=== PATIENT | male | born 1950 | race Caucasian/White ===

== ENCOUNTER 2019-11-03 08:04 | Emergency (ER) | payer MEDICARE, SELFPAY ==
--- NOTE | 2019-11-03 08:38 | ED.NAVMDI ---
HPI - Nausea/Vomiting/Diarrhea General Chief complaint: Nausea/Vomiting/Diarrhea Stated complaint: diarrhea Time Seen by Provider: 11/03/19 09:00 Source: patient and RN notes reviewed Mode of arrival: ambulatory Limitations: no limitations History of Present Illness HPI Narrative: 69-year-old male presents with concern for 5-day history of diarrhea. Reports the day before he had diarrhea he ate a steak that was very undercooked. Reports undigested steak in his first diarrhea stool. Reports greater than 6 stools a day for the first 3 days, then started taking Imodium which lessened the amount of stools. Reports he had another watery stool this morning so he took another dose of Imodium. Reports he sometimes has trouble making it to the bathroom. MD elicited complaint: diarrhea Related Data Home Medications Medication Instructions Recorded Confirmed aspirin [Aspir-Low] 81 mg PO DAILY 11/03/19 11/03/19 omeprazole magnesium [Prilosec OTC] 20 mg PO DAILY 11/03/19 11/03/19 simvastatin [Zocor] 20 mg PO DAILY 11/03/19 11/03/19 tramadol 50 mg PO Q6H 11/03/19 11/03/19 Allergies Allergy/AdvReac Type Severity Reaction Status Date / Time fentanyl Allergy Hallucinati Verified 11/03/19 08:53 ng Review of Systems Review of Systems: Narrative: CONSTITUTIONAL: Denies malaise, chills, sweats, or fever. ENT: Denies rhinorrhea, congestion, sinus pain, otalgia or sore throat. CARDIOVASCULAR: Denies chest pain, palpitations, or edema. RESPIRATORY: Denies cough or dyspnea. GASTROINTESTINAL: Denies abdominal pain, nausea, vomiting, bloody, or mucous stools. Reports persistent diarrhea GENITOURINARY: Denies dysuria or hematuria. MUSCULOSKELETAL: Denies myalgia. NEUROLOGIC: Denies headache. All systems reviewed & are unremarkable except as noted in HPI and below PMFSH Comments At time of signature, agree with nursing past medical, surgical, social and family history. There is no relevant family history pertinent to the presenting complaint Exam Narrative: Exam Narrative: GENERAL: Well-appearing, well-nourished, and in no acute distress. HEAD: Normocephalic. EYES: PERRLA, conjunctivae clear. NECK: Supple. No lymphadenopathy CHEST: Clear to auscultation. No respiratory distress. HEART: Regular rate and rhythm. No murmur heard. Normal peripheral pulses. ABDOMEN: Soft, nontender upon palpation, nondistended, normal active bowel sounds, no palpable or pulsatile masses, no guarding. No CVA tenderness SKIN: Warm, dry, no rash. NEURO: Alert and oriented x3. PSYCH: Normal mood and affect Course Course Emergency Course: Patient is aware of diagnosis, understands and agrees to treatment plan. Anticipatory guidance given. Patient agrees to follow-up as directed and is aware of reasons to seek care at the emergency department. Portions of this record may have been created with voice recognition software Vital Signs Vital signs: Vital Signs Temperature 98.3 F 11/03/19 08:42 Pulse Rate 93 11/03/19 08:42 Respiratory Rate 16 11/03/19 08:42 Blood Pressure 143/74 H 11/03/19 08:42 Pulse Oximetry 99 11/03/19 08:42 Temperature 98.3 F 11/03/19 08:42 Pulse Rate 93 11/03/19 08:42 Respiratory Rate 16 11/03/19 08:42 Blood Pressure 143/74 H 11/03/19 08:42 Pulse Oximetry 99 11/03/19 08:42 Reviewed. Pt has been instructed to follow up with his primary care provider within the next week regarding his elevated blood pressure today. MDM - Nausea/Vomiting/Diarrhea MDM Narrative Medical decision making narrative: Exam findings show no acute concerns or changes; patient is non-toxic appearing and is in no distress. Patient is appropriate for outpatient treatment and follow-up. Differential Diagnosis Differential diagnosis: Likely food poisoning, gastroenteritis, clostridium difficile infection and dehydration Critical Care Time Critical Care Time Critical Care Time: No Discharge Plan Discharge Clinical Impression: D
[2019-11-03 08:42] VITALS: BP 143/74; PULSE 93; RESP 16; TEMP 36.8; O2SAT 99
== END 2019-11-03 09:15 | disposition home or self-care (01) ==
PROVIDERS: Emergency Provider Nurse Practitioner
DX: R19.7 Diarrhea, unspecified (principal); E78.00 Pure hypercholesterolemia, unspecified; K21.9 Gastro-esophageal reflux disease without esophagitis
CPT/HCPCS: 99203; G0463